=== PATIENT | male | born 1995 | race Caucasian/White ===

== ENCOUNTER 2017-10-28 07:36 | Emergency (ER) | payer SELFPAY ==
[2017-10-28 07:38] VITALS: BP 114/72; PULSE 97; RESP 16; TEMP 36.7; O2SAT 98; BMI 30.9
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
[2017-10-28] MEDS: Ibuprofen 400 MG Tablet 800 MG PO (09:04)
== END 2017-10-28 09:10 | disposition home or self-care (01) ==
PROVIDERS: Emergency Provider Emergency Medicine
DX: S00.83XA Contusion of other part of head, initial encounter (principal); Y04.2XXA Assault by strike against or bumped into by another person, initial encounter; Y93.9 Activity, unspecified; Y92.89 Other specified places as the place of occurrence of the external cause; Y99.9 Unspecified external cause status; K02.9 Dental caries, unspecified; Z72.0 Tobacco use
CPT/HCPCS: 70486; 99283